=== PATIENT | male | born 1965 | race Caucasian/White ===

== ENCOUNTER 2017-01-07 08:44 | Emergency (ER) | payer OTHER ==
[~2017-01-07] VITALS: Ht 195.6 cm; Wt 104.3 kg
[2017-01-07 09:12] VITALS: BP 134/88
== END 2017-01-07 10:15 | disposition home or self-care (01) ==
LOC: ER 08:52
DX: M70.32 Other bursitis of elbow, left elbow (principal); Z90.89 Acquired absence of other organs
CPT/HCPCS: 20605